=== PATIENT | female | born 1965 | race Caucasian/White ===

== ENCOUNTER 2024-08-19 12:30 | Emergency (ER) | payer OTHER, SELFPAY ==
--- OUTSIDE RECORDS SUMMARY | 2024-08-19 12:32 | XMS_ITS | Clinical Summary ---
Author Organization [facility] [facility] Address [address] [place] [address] Care Team Providers Care Ceiling Insulation Blower Name Role Phone Burrell, Augustina Uriarte COLLAR TAILOR Primary Care Provider [phone] Allergies Active Allergy Reactions Criticality Noted Date Comments Cortisone Angioedema High 07/25/2023 Pt reports has cortisone shots which made her face swell up Lidocaine Flushing (skin) Low 08/10/2023 Penicillins Rash,Blisters High 08/04/2021 Venom-Honey Bee Swelling High 10/11/2023 Large local reactions Medications cyclobenzaprine (FLEXERIL) 10 mg tablet Take 1 tablet (10 mg total) by mouth 3 (three) times a day as needed Active traZODone (DESYREL) 50 mg tablet 0.5 tablets (25 mg total) 07/19/2021 Active gabapentin (NEURONTIN) 400 mg capsule Take 1 capsule (400 mg total) by mouth 3 (three) times a day 07/16/2021 Active clindamycin (CLINDAGEL) 1 % gel Apply to affected areas of vulva BID x 10 days. 30 g 1 03/17/2022 Active UNABLE TO FIND Felixypan hs Activ e tacrolimus (PROTOPIC) 0.1 % ointment Apply to AA Nasal Folds BID 30 g 11 08/10/[address] (VOLTAREN) 75 mg EC tablet Take 1 tablet (75 mg total) by mouth daily 08/10/2023 Active atorvastatin (LIPITOR) 10 mg tablet Take 1 tablet (10 mg total) by mouth daily 09/11/2023 Active cyanocobalamin (Vitamin B-12) 1,000 mcg/mL injection 10/08/2023 Active escitalopram (LEXAPRO) 10 mg tablet TAKE 1 TABLET BY MOUTH DAILY WITH THE 5 MG TABLET (TOTAL DAILY DOSE OF 15 MG) 09/19/[address] (CYMBALTA) 30 mg capsule daily 03/18/2024 Active valACYclovir (VALTREX) 1 gram tablet Take 1 tablet (1,000 mg total) by mouth daily 30 tablet 11 04/17/2024 04/12/19 Active clobetasoL (TEMOVATE) 0.05 % ointment Place small pea sized amount nightly to vulva. 45 g 2 04/17/2024 Active Active Problems Problem Noted Date Diagnosed Date Dysphagia 02/23/2024 Mood disorder 02/23/2024 Hematochezia 10/28/2022 HSV infection 04/28/2022 Abnormal MRI, thoracic spine 04/07/2022 Sciatica 07/02/2020 Lichen sclerosus of female genitalia 07/25/2019 Atopic dermatitis 07/25/2019 Lichen sclerosus 07/25/2019 Multiple joint pain 07/25/2019 Encounters Date Type Department Care Team Description 08/14/2024 11:30 AM CDT Office Visit [facility] Dermatology [address] [place] [address] [address] [place] [address] Kalani Ignacio MD Actinic keratosis (Primary Dx); Diffuse photodamage of skin; Multiple benign nevi; Purpura; Solar lentigo; Nguyen angioma; Seborrheic keratosis 06/25/2024 Telephone [facility] Gastroenterology [address] [facility] [address]th [place] [address] [place] [address] April Paez LPN from Last 3 Months Immunizations Immunization Administration Dates Next Due Pfizer SARS-CoV-2 Monovalent Vaccination (12+ Yrs) PURPLE 03/15/2021 Tdap 01/25/2017 Surgical History Surgery Date Site/Laterality Comments TOOTH EXTRACTION TUBAL LIGATION DILATION AND CURETTAGE OF UTERUS COLONOSCOPY Medical History Medical History Date Comments Depression Lichen sclerosus Family History Medical History Relation Name Comments Cancer Mother Diabetes Other Uterine cancer Other Breast cancer Sister Relation Name Status Comments Mother Other Sister Social History Tobacco Use Types Packs/Day Years Used Date Smoking Tobacco: Former Cigarettes Smokeless Tobacco: Current Tobacco Cessation:Ready to Q uit: Not Asked; Counseling Given: Not Answered AUDIT-C Answer Date Recorded Frequency of Alcohol Consumption Not on file 03/22/2024 Q2: How many drinks containi ng alcohol do you have on a typical day when you are drinking? Patient does not drink Frequency of Binge Drinking Not on file 03/04 Personal Safety Answer Date Recorded Have you ever been in or are you currently in a harmful physical or emotional relationship or is someone making you feel afraid or unsafe? Denies 12/19/2022 Comments No Sex and Gender Information Value Date Recorded Sex Assigned at Not on file Legal Sex Female 6:26 PM PORTER HEAD Gender Identity Female 06/22/2023 2:37 PM CDT Sexual Orientation Straight 06/22/2023 2: 37 PM CDT Obstetrics History Para Term AB IAB SAB Ectopic Multiple Livin g Live Births 1 1 1 1 1 Date Outcome GA Total Labor Labor/2nd/3rd Weight Sex Type Anes PTL Irish A1 A5 Name Clin 1990 Term M Vag-S pont Living Complications:Other (Comment ) Last Filed Vital Signs Vital Sign Reading Time Taken Comments Blood Pressure 120/80 04/17/2024 1:20 PM PORTER HEAD Pulse 76 03/22/2024 8:43 AM PORTER HEAD Temperature 36.8 C (98.2 F) 03/22/2024 8:43 AM PORTER HEAD Respiratory Rate 13 12/19/2022 11:45 AM CDT Oxygen Saturation 100% 03/22/2024 8:43 AM PORTER [place] Inhaled Oxygen Concentration - - Weight 61.8 kg (136 lb 3.2 oz) 04/17/2024 1:20 P M PORTER HEAD Height 162.6 cm (5' 4 ) 04/17/2024 1:20 PM PORTER HEAD Body Mass Index 23.38 04/17/2024 1:20 PM PORTER HEAD Plan of Treatment Health Maintenance Due Date Last Done Comments Depression Screening 1965 Hepatitis B Screening 12/09/1981 Covid-19 Vaccine (2023- 5 season) 2023 03/15/2021, 07/30/2020 Cervical Cancer Screening 04/17/20252024, 04/17/2024, 02/16/2022 Regular Well Visit/Exam 18-64 04/17/2025, 02/16/2022 Breast Cancer Screening-Mammogram 04/29/2025 04/29/2024 DTaP/Tdap/Td Vaccine (2 - Td or Tdap) 01/25/2027 01/25/2017 Colon Cancer Screening-Colonoscopy 12/19/2032 12/19/2022 Zoster Vaccine Completed 11/16/2022, 04/28/2022 Influenza Vaccine Completed 01/29/2024, 01/31/2023, 01/16/2022 Hepatitis C Screening Completed 03/04/2024 , 03/04/2024 Pneumococcal vaccine <65 Aged Out No longer eligible based on patient's age to complete this topic Procedures Procedure Name Priority Date/Time Associated Diagnosis Comments SCREENING MAMMOGRAM BILATERAL W JOSE L Schedule Routine, Read Routine (OP Routine) 04/29/2024 1:27 PM PORTER HEAD Encounter for screening mammogram for malignant neoplasm of breast HIGH RISK HPV DNA DETECTION WITH GENOTYPING Routine 04/17/2024 2:05 PM PORTER HEAD Well woman exam HEPATITIS C ANTIBODY Routine 03/04/2024 2:27 PM PORTER HEAD COLONOSCOPY 12/19/2022 10:15 AM CDT from Last 3 Months or Most Recently Relevant to Health Maintenance Results * Screening Mammogram Bilateral W Jose L (04/29/2024 1:27 PM PORTER HEAD) Anatomical Region Laterality Modality Breast Bilateral Mammography 05/02/2024 8:20 AM PORTER HEAD Impressions 05/02/2024 8:20 AM PORTER [place] There is no mammographic evidence to suggest malignancy. The patient may continue screening mammography as per ACR guidelines. FINAL ASSESSMENT: BI-RADS Category 1: Negative. Electronically signed by: Carolyn Templeton 05/02/2024 8:20 AM PORTER [place] EXAMINATION: BILATERAL SCREENING MAMMOGRAM WITH TOMOGRAPHY HISTORY: Screening. COMPARISON(S): None. TECHNIQUE: Full-field 2D images and digital tomosynthesis images were obtained. CAD was utilized. BREAST PARENCHYMAL COMPOSITION: The breasts are heterogenously dense, which may obscure small masses. FINDINGS: There are no suspicious masses. No suspicious calcifications are seen. There is no unexplained architectural distortion. There is no skin thickening seen. There are no mammographically abnormal lymph nodes seen in the axillae or elsewhere. Augustina Burrell NP IMG MAMMO PROCEDURES Final R esult * High Risk HPV DNA Detection with Genotyping (Molecular component) (04/17/2024 2:05 PM PORTER HEAD) HPV HR 16 Not Detected Not Detected [facility] Comment:Testing performed by : [facility], [address] [place]., [address] HPV HR 18 Not Detected Not Detected [facility] Comment:Testing performed by : [facility], [address] [place]., [address] HPV HR Non 16/18 Not Detected Not Detected [facility] Comment: Interpretive Data Nucleic acid amplification for detection of high-risk Human Papilloma virus (HPV) is performed by the Sy Kwame 6800 HPV test. This assay specifically detects HPV-16 and HPV-18 genotypes. The following HPV genotypes are detected as high-risk HPV: HPV-31, 33, 35, ,39, 45, 51, 52, 56, 58, 59, 66, and 68. This assay has been approved by the [place] Food and Drug Administration for detection of HPV in cervical specimens collected by a physician using an endocervical brush/spatula or cervical broom and placed in the ThinPrep Pap Test PreservCyt collection containers. The performance characteristics of this test have been verified by the [facility] Molecular Infectious Disease laboratory. Correlate with separately reported cytology results, as applicable. Interpretive data last revised 22 Testing performed by: [facility], [address] [place]., [address] Endocervical 04/17/2024 2:05 PM PORTER HEAD 04/18/2024 2:10 PM PORTER HEAD Narrative [facility] - 04/19/2024 3:58 AM PORTER [place] Clinical history and diagnosis->screening Testing type->Screening Last menstrual period (date if known)->postmenopausal Mandy Sahni MD LAB BODY FLUIDS AND STOOL S ORDERABLES Final Result Performing Organization Address [facility] Co de Phone Number [facility] [address] [facility] [place] [address] [facility] * Hepatitis C antibody Blood (03/04/2024 2:27 PM PORTER HEAD) Hep C Ab Nonreactive Nonreactive Comment: Interpretive Data Nonreactive: Antibodies to HCV not detected. Does NOT exclude the possibility of recent exposure to HCV. Equivocal: Equivocal for HCV antibodies. Supplemental molecular testing will be automatically performed to determine infection status in accordance with current CDC screening recommendations. Reactive: Positive for HCV antibodies. This may represent current or past HCV infection. Supplemental molecular testing will be automatically performed to determine current infection status in accordance with current CDC screening recommendations. Interpretive data was last revised on 2019. Testing performed by: [facility], [address] [place] [address]., [address] Blood 03/04/2024 2:27 PM PORTER HEAD 03/05/2024 9:49 AM PORTER HEAD Monster Roe MD LAB MICROBIOLOGY - GENERAL ORDER LILI Final Result Performing Organization Address [facility] Co de Phone Number [facility] [address] [facility] [place] [address] * COLONOSCOPY (12/19/2022 10:15 AM CDT) Anatomical Region Laterality Modality Other Narrative Procedure Note Brian Giang MD - 12/19/2022 10:15 AM CDT GI ENDOSCOPY [facility] Patient Name: Sarah Orozco Procedure Date: 12/19/2022 10:15 AM Date of : 1965 Admit Type: Outpatient Age: 57 Gender: Female Attending MD: Brian Giang M.D. Room: [facility] ENDOSCOPY ROOM 8 Note Status: Finalized Procedure: Colonoscopy Indications: Hematochezia, Change in stool caliber Referring MD: Augustina Burrell NP Providers: Brian Giang M.D. Medicines: Monitored Anesthesia Care Complications: No immediate complications. Estimated Blood Loss: Estimated blood loss was minimal. Procedure: Pre-Anesthesia Assessment: - [place] Protocol: - Pre-procedure Verification: Prior to theprocedure, the patient's identity was verified by full name,date of and medical record number. The patient's identity was verified on all pertinent medical records, including History and Physical. Also priorto the procedure, a History and Physical wasperformed, and patient medications, allergies andsensitivities were reviewed. The patient's tolerance of previous anesthesia was reviewed. The patient is competent.The risks and benefits of the procedure and thesedation options and risks were discussed with the patient.All questions were answered and informed consent was obtained. - Time-Out: Prior to the start of the procedure,the patient's identification, proposed procedure,accurate signed consent, correctly labeled images andrecords, and need for prophylactic antibiotics were verifiedby the physician, the nurse and the filling and stapling machine operator in the endoscopy suite. - Immediately prior to administration ofmedications, the patient was re-assessed for adequacy to receive sedatives. - The risks and benefits of the procedure and the sedation options and risks were discussed with the patient. All questions were answered and informed consent was obtained. The benefits, risks and alternatives of theprocedure and sedation were discussed and informed consentwas obtained. All questions were answered. Please referto the signed informed consent document in the medical record. The scope was passed under direct vision.The CF [id number] endoscope was introduced through the anus and advanced to the cecum, identified by appendiceal orifice and ileocecal valve. The colonoscopy was performed with ease. The patient tolerated the procedure well. The quality of thebowel preparation was evaluated using the BBPS (BostonBowel Preparation Scale) with scores of: Right Colon = 3, Transverse Colon = 3 and Left Colon = 3 (entiremucosa seen well with no residual staining, smallfragments of stool or opaque liquid). The total BBPS score equals 9. The ileocecal valve, appendiceal orifice, and rectum were photographed. The bowel preparation used was GoLYTELY via split dose instruction. The quality of the bowel preparation was excellent. Findings: The perianal exam findings include significant erythmea of theexternal rectum and perineal region. Three sessile polyps were found in the cecum. The polyps were 2 to 3mm in size. These polyps were removed with a cold biopsy forceps.Resection and retrieval were complete. A few small-mouthed diverticula were found in the sigmoid colon. Non-bleeding internal hemorrhoids were found during retroflexion. The hemorrhoids were moderate. Because of her history of lichen sclerosus and possible slowed GI motility, I opted to take random colon biopsies of the right colon (cecum, ascending colon, which all appeared normal), left colon (descending colon, particularly an area with some mild white spotsbut not shad), and sigmo-rectum (the sigmoid was difficult to traversebut I believe this was more due to diverticulosis). Biopsies were takenwith a cold forceps for histology. Estimated blood loss was minimal. No lesions found to explain hematochezia other than some internal hemorrhoids. Impression: - Significant erythmea of the external rectum and perineal region. found on perianal exam. - Three 2 to 3 mm polyps in the cecum, removed witha cold biopsy forceps. Resected and retrieved. - Diverticulosis in the sigmoid colon. - Non-bleeding internal hemorrhoids. Recommendation: - Discharge patient to home. - Await pathology results, ensure no GI involvementof lichen sclerosus. - Regarding her repeat colonoscopy for polyp surveillance, I had a low suspicion that the polypsI removed today were adenomas, await pathology;probably reasonable to recommend a repeat colonoscopy in7-10 years. - Follow-up with Dr. Rodriguez regarding next steps, after pathology results. Electronically signed by Brian Giang MD Brian Giang M.D. 12/19/2022 11:15:23 AM . Number of Addenda: 0 Note Initiated On: 12/19/2022 10:15 AM Recognized by the [employer] for promoting quality in endoscopy Brian Giang MD ENDOSCOPY PROCEDURES Final Res ult from Last 3 Months or Most Recently Relevant to Health Maintenance Insurance [facility] AETNA [facility] Member Subscriber Plan / Payer (Ef fective 2020-Present) Name:Sarah Orozco Relation to Subscriber:Self Name:Emma Orozcomaurisio Elias Payer ID:[id number] (NAIC) Type:MEDICAID RISK OTHER Address: [facility] [id number] [place] [id number] Advance Directives For more information, please contact: [phone] * Full Code (Latest Code Status on File) Date Activated Date Inactivated Comments 12/19/2022 9:50 AM 12/19/2022 4:31 PM Care Teams Ceiling Insulation Blower Relationship Specialty Start Date End Date Augustina Burrell NP [address] [place] [address] PCP - General 07/02/20
--- OUTSIDE RECORDS SUMMARY | 2024-08-19 12:32 | XMS_ITS | Referral Summary ---
Author Organization [facility] Address [address] [place] [address] Care Team Providers Care Dials Inspector Name Role Phone Ashanti, Augsutina Uriarte NP Primary Care Provider Encounters Date Type Department Care Team Description 08/14/2024 11:30 AM CDT Office Visit [facility] Dermatology [address] [facility] [address] [place] [address] Kalani Ignacio MD Actinic keratosis (Primary Dx); Diffuse photodamage of skin; Multiple benign nevi; Purpura; Solar lentigo; Nguyen angioma; Seborrheic keratosis 06/25/2024 Telephone [facility] Gastroenterology [facility] [address]th [place] [address] [place] [address] April Paez LPN from Last 3 Months Allergies Active Allergy Reactions Criticality Noted Date [...] g 1 03/17/2022 Active UNABLE TO FIND Zypan hs Activ e tacrolimus (PROTOPIC) 0.1 % [...] Lichen sclerosus 07/25/2019 Multiple joint pain 07/25/2019 Immunizations Immunization Administration Dates Next Due Pfizer SARS-CoV-2 Monovalent Vaccination (12+ Yrs) PURPLE 03/15/2021 Tdap 01/25/2017 Social History Tobacco Use Types Packs/Day Years [...] on file Legal Sex Female 6:26 PM BILLET HEATER OPERATOR Gender Identity Female 06/22/2023 2:37 PM CDT Sexual Orientation Straight 06/22/2023 2: 37 PM CDT Last Filed Vital Signs Vital Sign Reading Time Taken Comments Blood Pressure 120/80 04/17/2024 1:20 PM BILLET HEATER OPERATOR Pulse 76 03/22/2024 8:43 AM BILLET HEATER OPERATOR Temperature 36.8 C (98.2 F) 03/22/2024 8:43 AM BILLET HEATER OPERATOR Respiratory Rate 13 12/19/2022 11:45 AM CDT Oxygen Saturation 100% 03/22/2024 8:43 AM BILLET HEATER OPERATOR Inhaled Oxygen Concentration - - Weight 61.8 kg (136 lb 3.2 oz) 04/17/2024 1:20 P M BILLET HEATER OPERATOR Height 162.6 cm (5' 4 ) 04/17/2024 1:20 PM BILLET HEATER OPERATOR Body Mass Index 23.38 04/17/2024 1:20 PM BILLET HEATER OPERATOR Plan of Treatment Not on file Procedures Procedure Name Priority Date/Time Associated Diagnosis Comments SCREENING MAMMOGRAM BILATERAL W JOSE L Schedule Routine, Read Routine (OP Routine) 04/29/2024 1:27 PM BILLET HEATER OPERATOR Encounter for screening mammogram for malignant neoplasm of breast HIGH RISK HPV DNA DETECTION WITH GENOTYPING Routine 04/17/2024 2:05 PM BILLET HEATER OPERATOR Well woman exam HEPATITIS C ANTIBODY Routine 03/04/2024 2:27 PM BILLET HEATER OPERATOR COLONOSCOPY 12/19/2022 10:15 AM CDT from Last 3 Months or Most Recently Relevant to Health Maintenance Results * Screening Mammogram Bilateral W Jose L (04/29/2024 1:27 PM BILLET HEATER OPERATOR) Anatomical Region Laterality Modality Breast Bilateral Mammography 05/02/2024 8:20 AM BILLET HEATER OPERATOR Impressions 05/02/2024 8:20 AM BILLET HEATER OPERATOR There is no mammographic evidence to suggest malignancy. The patient may continue screening mammography as per ACR guidelines. FINAL ASSESSMENT: BI-RADS Category 1: Negative. Electronically signed by: Moni Morrell M.D. Narrative 05/02/2024 8:20 AM BILLET HEATER OPERATOR EXAMINATION: BILATERAL SCREENING MAMMOGRAM WITH TOMOGRAPHY HISTORY: [...] with Genotyping (Molecular component) (04/17/2024 2:05 PM BILLET HEATER OPERATOR) HPV HR 16 Not Detected Not Detected [facility] Comment:Testing performed by : , [address] [place]., [address] HPV HR 18 Not Detected Not Detected [facility] Comment:Testing performed by : , [address] [place]., [address] HPV HR Non 16/18 Not Detected Not [...] this test have been verified by the [facility] Molecular Infectious Disease laboratory. Correlate with separately reported cytology results, as applicable. Interpretive data last revised 22 Testing performed by: , [address] [place] [address]., [address] Endocervical 04/17/2024 2:05 PM BILLET HEATER OPERATOR 04/18/2024 2:10 PM BILLET HEATER OPERATOR Narrative [facility] - 04/19/2024 3:58 AM BILLET HEATER OPERATOR Clinical history and diagnosis->screening Testing type->Screening Last menstrual period (date if known)->postmenopausal Mandy Sahni MD LAB BODY FLUIDS AND STOOL S ORDERABLES Final Result [facility] [address] [facility] Department [address] [place] [address] [facility] * Hepatitis C antibody Blood (03/04/2024 2:27 PM BILLET HEATER OPERATOR) Hep C Ab Nonreactive Nonreactive Comment: Interpretive [...] last revised on 2019. Testing performed by: [facility], [address] [place] [address]., [address] Blood 03/04/2024 2:27 PM BILLET HEATER OPERATOR 03/05/2024 9:49 AM BILLET HEATER OPERATOR Monster Roe MD LAB MICROBIOLOGY - GENERAL ORDER LILI Final Result [facility]) [address] [facility] [place] [address] * COLONOSCOPY (12/19/2022 10:15 AM CDT) Anatomical Region Laterality Modality Other Narrative Procedure Note Brian Giang MD - 12/19/2022 10:15 AM CDT GI ENDOSCOPY [facility] Patient Name: Sarah Orozco Procedure Date: 12/19/2022 10:15 AM Date of : 1965 Admit Type: Outpatient Age: 57 Gender: Female Attending MD: Brian Giang M.D. Room: [facility] ENDOSCOPY ROOM 8 Note Status: Finalized Procedure: Colonoscopy Indications: Hematochezia, Change in stool caliber Referring MD: Augustina Burrell NP Providers: Brian Giang M.D. Medicines: Monitored Anesthesia Care Complications: No immediate complications. Estimated Blood Loss: Estimated blood loss was minimal. Procedure: Pre-Anesthesia Assessment: - [place] Protocol: - Pre-procedure Verification: Prior to theprocedure, [...] verifiedby the physician, the nurse and the machine rug cleaner in the endoscopy suite. - Immediately prior [...] scope was passed under direct vision.The CF [id number] endoscope was introduced through the anus [...] On: 12/19/2022 10:15 AM Recognized by the [place] [employer] for promoting quality in endoscopy Brian Giang MD ENDOSCOPY PROCEDURES Final Res ult from Last 3 Months or Most Recently Relevant to Health Maintenance Insurance AETNA [facility] AETNA [facility] AETNA [facility] Advance Directives For more information, please contact: [phone] * Full Code (Latest Code Status on File) Date Activated Date Inactivated Comments 12/19/2022 9:50 AM 12/19/2022 4:31 PM Care Teams Dials Inspector Relationship Specialty Start Date End Date Augustina Burrell NP [address] [place] [address] PCP - General 07/02/20
--- OUTSIDE RECORDS SUMMARY | 2024-08-19 12:32 | XMS_ITS | Clinical Summary ---
Author Organization [facility] Address [address] [place] [address] Care Team Providers Care Fiberglass Insulation Installer Name Role Phone Lilliana Boss APRN-TRUCK DRIVER TEAMSTER Primary Care Provider Source Comments [facility],non-owned Affiliates and Associated Physician Practices is amultiple site organization consisting of ambulatory clinics and hospital sitesin [place], [place], [place] and [place]. This disclosure is being madepursuant to the Care Everywhere program and may not contain all information available regarding this patient. Last updated 17.[facility] Allergies No known active allergies Medications * Be aware that medications may not be up to date on this document. Alwaysverify current medications with the patient. clobetasol (TEMOVATE) 0.05 % ointment Use only for flares 1-2x daily for no more than one week 45 g 08/26/2020 Active Social History Tobacco Use Types Packs/Day Years Used Date Smoking Tobacco: Never Assessed Comments Unknown Sex and Gender Information Value Date Recorded Sex Assigned at Not on file Legal Sex Female 9:24 AM CDT Gender Identity Not on file Sexual Orientation Not on file Last Filed Vital Signs Vital Sign Reading Time Taken Comments Blood Pressure 131/69 08/26/2020 10:25 AM CDT Pulse 80 08/26/2020 10:25 AM CDT Temperature - - Respiratory Rate - - Oxygen Saturation - - Inhaled Oxygen Concentration - - Weight 55.4 kg (122 lb 3.2 oz) 08/26/2020 10:25 AM CDT Height - - Body Mass Index - - Plan of Treatment Health Maintenance Due Date Last Done Comments COLOGUARD (AGES 45-75) - COL ON CA SCREENING 1963 COLON MONITORING 1963 COLONOSCOPY - COLON CA SCREENING 1963 CT COLONOGRAPHY - COLON CA SCREENING 1963 Colorectal Cancer Screening 1963 FIT - COLON CA SCREENING 1963 FLEX SIG - COLON CA SCREENING 1963 LIPID TESTING 1963 MAMMOGRAM 1963 PAP SMEAR 1963 HIV SCREENING 12/09/1978 HEPATITIS C SCREENING 12/05/1981 DTAP/TDAP/TD VACCINES (1 - Tdap) 12/09/1982 PNEUMOCOCCAL VACCINE 50+ (1 of 1 - PCV) 12/09/2013 ZOSTER VACCINE (1 of 2) 12/09/2013 COVID-19 VACCINE ( - 2023-2 5 season) 2023 DEPRESSION SCREENING 04/03/2024 INFLUENZA VACCINE (Season Ended) 2024 Respiratory Syncytial Virus (RSV) Vaccine Pt: or over 60 yrs (1 - 1-dose 75+ series) 12/09/2038 HEPATITIS B VACCINE Aged Out No longe r eligible based on patient's age to complete this topic HIB VACCINE Aged Out No longer eligi ble based on patient's age to complete this topic HPV VACCINE Aged Out No longer eligi ble based on patient's age to complete this topic MENINGOCOCCAL (Group B) VACC INE SHARED DECISION-MAKING Aged Out No longer eligibl e based on patient's age to complete this topic MENINGOCOCCAL GROUPS A/C/Y/W VACCINE Aged Out No longer eligible b ased on patient's age to complete this topic Insurance MEDICAID [id number] Care Teams Fiberglass Insulation Installer Relationship Specialty Start Date End Date Lilliana Boss, CHILDREN'S AIDE-TRUCK DRIVER TEAMSTER [address] [place] [id number] PCP - General 06/11/19
--- OUTSIDE RECORDS SUMMARY | 2024-08-19 12:33 | XMS_ITS | Clinical Summary ---
Author Organization [facility] Address [address] [place] [address] Care Team Providers Care Wrapper Off Name Role Phone Ashanti Augustina VALERIO CNP Primary Care Provider [phone] Allergies Active Allergy Reactions Criticality Noted Date Comments Bee Venom Swelling High 10/11/2023 Large local reactions Cortisone Swelling High 07/25/2023 Pt reports has cortisone shots which made her face swell up Lidocaine Other (see Comments) Low 08/10/2023 Penicillins Other (see Comments),Rash High 08/04/2021 Medications valACYclovir (VALTREX) 1 GM Tablet Take 1,000 mg by mouth daily. 04/17/2024 04/12/19 26 Active clobetasol (TEMOVATE) 0.05 % Ointment Apply nightly. 08/26/2020 Active atorvastatin (LIPITOR) 10 MG Tablet Take 10 mg by mouth daily. Active cyanocobalamin (VITAMIN B-12) 1000 MCG/ML Solution 1,000 mcg. 10/08/2023 Active escitalopram (LEXAPRO) 10 MG Tablet Take 10 mg by mouth daily. Active diclofenac (VOLTAREN) 75 MG Tablet Delayed Response Take 75 mg by mouth daily. Active tacrolimus (PROTOPIC) 0.1 % Ointment Apply to AA Nasal Folds BID 08/10/2023 Active clindamycin 1 % Gel Apply to affected areas of vulva BID x 10 days. 03/17/2022 Active cyclobenzaprine (FLEXERIL) 10 MG Tablet Take 10 mg by mouth. Active gabapentin (NEURONTIN) 400 MG Capsule Take 400 mg by mouth 3 times daily. Active traZODone (DESYREL) 50 MG Tablet 25 mg. 07/19/2021 Active DULoxetine (CYMBALTA) [address] Mar 06/08/2024 Active Active Problems Problem Noted Date Diagnosed Date Joint pain 06/25/2024 Muscle pain 06/25/2024 Fibromyalgia 06/25/2024 MGUS (monoclonal gammopathy of unknown significa nce) 05/13/2024 Encounters Date Type Department Care Team Description 06/10/2024 1:00 PM CDT Office Visit [facility] [address] [phone] Pablo Braga MD MGUS (monoclonal gammopathy of unknown significance) (Primary Dx) 06/10/2024 Travel from Last 3 Months Immunizations Immunization Administration Dates Next Due Influenza, Seasonal, Injectable, Undefined 01/28 Family History Relation Name Status Comments Brother Alive Child Alive Father Alive Mother Alive Sister Alive Social History Tobacco Use Types Packs/Day Years Used Date Smoking Tobacco: Former Cigarettes Smokeless Tobacco: Never Tobacco Cessation:Counseling Given: Not Answered Alcohol Use Standard Drinks/Week Comments Yes 0 (1 standard drink = 0.6 oz pur e alcohol) Comments Unknown Sex and Gender Information Value Date Recorded Sex Assigned at Not on file Legal Sex Female 11:57 PM CDT Gender Identity Not on file Sexual Orientation Not on file Last Filed Vital Signs Vital Sign Reading Time Taken Comments Blood Pressure 118/70 06/10/2024 1:16 PM CDT Pulse 87 06/10/2024 1:16 PM CDT Temperature 36.9 C (98.4 F) 06/10/2024 1:16 PM CDT Respiratory Rate 18 06/10/2024 1:16 PM CDT Oxygen Saturation 98% 06/10/2024 1:16 PM CDT Inhaled Oxygen Concentration - - Weight 63.4 kg (139 lb 12.8 oz) 06/10/2024 1:16 PM CDT Height 161.3 cm (5' 3.5 ) 06/10/2024 1:16 PM CDT Body Mass Index 24.38 06/10/2024 1:16 PM CDT Plan of Treatment Upcoming Encounters Date Type Department Care Team (Late st Contact Info) Description 09/16/2024 1:30 PM CDT Lab [facility] [address] [phone] Pablo Braga MD [address] [place], [place] [id number] Lab, [facility] 09/16/2024 1:45 PM CDT Office Visit [facility] [address] [place] [phone] Pablo Braga MD [address] [place], [place] [id number] Health Maintenance Due Date Last Done Comments Hepatitis C Virus (HCV) Screening 1965 Pap Smear 12/09/1984 Cervical Cancer Screening (CCS) 12/09/1993 HPV/Cotest 12/09/1993 Cologuard 12/09/2013 Immunochemical Fecal Occult Blood 12/09/2013 Pneumococcal Immunization (50+ years) (1 of 1 - PCV) 12/09/2013 Mammogram 04/29/2025 04/29/2024 Colonoscopy 12/19/2032 12/19/2022 Colorectal Cancer Screening 12/19/2032 Respiratory Syncytial Virus (RSV) Immunization (Adult) (1 - 1-dose 75+ series) 12/09/2038 12/19/2022 DTaP/Tdap/Td Immunization Discontinued 01/25/2017 TdaP Immunization Completed 01/25/2017 Zoster Immunization Completed 11/16/2022, Influenza Immunization Completed 4, 01/31/2023, 01/16/2022 SARS-COV-2 Immunization Completed 01/29/20 24, 01/16/2022, 03/15/2021, Additional history exists Hepatitis B Immunization Aged Out No longer eligible based on patient's age to complete this topic Meningococcal Immunization (ACWY) Aged Out No longer eligible based on patient's age to complete this topic Rotavirus Immunization Aged Out No lo nger eligible based on patient's age to complete this topic Insurance MEDICAID [employer]ICAID [employer] Care Teams Wrapper Off Relationship Specialty Start Date End Date Augustina Burrell APRN, CNP [address] [place] [address] PCP - General Family Medicine 08/26/21
--- OUTSIDE RECORDS SUMMARY | 2024-08-19 12:33 | XMS_ITS | Data Portability ---
Author Organization [facility] TIFFANYCarlito [facility] Address [address] [place] [address] Care Team Providers Care Heavy Equipment Service Manager Name Role Phone AUGUSTINA GARRETT Primary Care Provider Unavailabl e Assessment No assessment recorded. Plan of Treatment Reminders Order Date Submit Date Provider Last Modified By Organization Details Last Modified Time Details Appointments ANY 15 2024 01:15P M Augustina Garrett APN, DEBT COUNSELOR-C Not available Not available Not available Lab TSH, ultra-s ensitiv e, serum 2024 025 [facility], [address] [facility] , [place], [address], 07/29/2024 14:58:05 CMP, serum or plasma 2024 025 [facility], [address], [place], [address], 04/30/2024 16:20:52 lipid panel, serum 2024 025 [facility], [address] [facility] [place], [address], 07/29/2024 15:02:07 CBC 2024 025 [facility], [address], [place], [address], 04/30/2024 16:20:52 respira tory allerge n panel - [place] 2023 024 SHANTEL [facility], [address] [facility], [facility], [place], [address], 08/03/2023 10:37:02 food allerge n panel, serum 2023 024 SHANTEL [facility], [address] [facility], [facility], [place], [address], 08/03/2023 10:37:03 ESR (erythr ocyte sedimen tation rate), blood 2023 024 [facility], [address] [facility], [facility], [place], [address], 08/03/2023 10:37:05 C reactiv e protein , QN, serum or plasma 2023 024 [facility], [address] [facility], [facility], [place], [address], 08/03/2023 10:37:06 rf (rheuma toid factor) + anti-cc p abs, serum 2023 024 [facility], [address] [place] [address], [facility], [place], [address], 08/03/2023 10:37:00 LASHONDA (antinu clear antibod ies) screen, serum 2023 024 [facility], [address] [place] [address], [facility], [place], [address], 08/03/2023 10:37:01 lipid panel, serum 2023 024 [facility], [address] [facility], [facility], [place], [address], 07/28/2023 03:08:25 CMP, serum or plasma 2023 024 [facility], [address] [facility], [facility], [place], [address], 07/28/2023 03:08:25 HbA1c (hemogl obin A1c), blood 2023 024 [facility], [address] [facility], [facility], [place], [address], 08/03/2023 10:37:05 CBC 2023 024 [facility], [address] [facility], [facility], [place], [address], 07/28/2023 03:08:26 vitamin B12 + folate, serum or blood 2023 024 SHANTEL [facility], [address] [facility], [facility], [place], [address], 08/03/2023 10:37:04 vitamin D, 25-hydr oxy, total, serum 2023 024 [facility], [address] [place] [address], [facility], [place], [address], 08/03/2023 10:37:07 TSH, ultra-s ensitiv e, serum 2023 024 SHANTEL [facility], [address] [facility], [facility], [place], [address], 08/03/2023 10:37:02 urinaly sis, dipstic k 2023 024 In-Office Order, Internal Use Only DO Not Attach Compendium DO Not Attach Compendium, Do Not Delete/merge, [id number] 05/16/2023 12:30:26 culture , urine 2023 024 [facility], [address] [facility], [facility], [place], [address], 05/19/2023 14:12:46 Referral None recorde d. Procedures None recorde d. Surgeries None recorde d. Imaging MAMMO, screeni ng, digital , bilater al 2023 024 SHANTEL [facility] ([facility]), [address] [facility] [place], [address], 05/02/2024 09:24:49 Medication Orders duloxet ine 60 mg capsule ,delaye d release 2024 025 [facility], [address] [place] [address], [address], 07/29/2024 15:02:02 atorvas tatin 10 mg tablet 2024 025 [facility], [address] [place] [address], [address], 07/29/2024 15:01:58 Cymbalt a 30 mg capsule ,delaye d release 2024 025 [facility], [address] [place] [address], [address], 07/29/2024 14:37:29 diclofe nac sodium 75 mg tablet, delayed release 2024 025 [facility], [address] [place] [address], [address], 04/30/2024 16:20:58 atorvas tatin 10 mg tablet 2024 025 [facility], [address] [place] [address], [address], 04/30/2024 16:20:53 gabapen tin 400 mg capsule 2024 025 [facility], [address] [place] [address], [address], 07/29/2024 14:37:37 Macrobi d 100 mg capsule 2023 024 [place] [address], [address] [place] [address], [address], 07/27/2023 14:37:29 Patient TargetsNo targets recorded. Patient Instructions Encounter Date Encounter Id Patient Instructions Last Modified By Organization Details Last Modified Time 05/16/2023 [id number] painful urination (dysuria): care instructions Not available 05/16/2023 12:23:08 Take all antibiotics as prescribed. Do not use bubble baths. Wipe from front to back. Take 500 mg Vitamin C twice a day or try OTC cranberry pills or 100% cranberry juice. Increase fluids. Not available 05/16/2023 12:31:25 keep f/u as planned Not available 05/16/2023 12:31:33 07/27/2023 [id number] Quitting Tobacco: Care Instructions Not available 07/27/2023 14:58:16 high cholesterol: care instructions Not available 07/27/2023 14:58:16 learning about mood disorders Not available 07/27/2023 14:58:17 Cont on current medications. Not available 07/27/2023 14:58:13 dwp labs needed, plan pending results Not available 07/27/2023 14:53:26 01/29/2024 [id number] influenza (flu) vaccine: care instructions Not available 01/29/2024 14:54:19 high cholesterol: care instructions Not available 01/29/2024 14:54:19 learning about mood disorders Not available 01/29/2024 14:54:19 Cont on current medications. Not available 01/29/2024 14:41:14 follow up in 6 months Not available 01/29/2024 14:48:08 04/30/2024 [id number] neuropathic pain: care instructions Not available 04/30/2024 16:20:47 handicap placard* jschulterma Not available 05/01/2024 08:36:13 Continue all medications as prescribed. Not available 04/30/2024 16:21:40 keep f/u as planned Not available 04/30/2024 16:21:44 07/29/2024 [id number] neuropathic pain: care instructions Not available 07/29/2024 15:01:51 Continue all medications as prescribed. Not available 07/29/2024 14:42:45 follow up in 6 months Not available 07/29/2024 15:05:26 Reason for Referral None Reported. Results Created Date Observation Date Name Description Value Unit Range Abnormal Flag Note LastModifiedBy Organization Detail LastModifiedTime 05/16/19 24 05/19/2023 URINE CULTU RE,CO MPREH ENSIV E urine culture,comp rehensive Final report abnormal Not Available [facility] ([facility]) [address] [facility], [place], [address], 05/19/2023 14:12:45 05/16/19 24 05/19/2023 URINE CULTU RE,CO MPREH ENSIV E result 1 Escher ichia coli abnormal 50,00 0-100 ,000 colon y formi ng units per mL Cefaz robyn <=4 ug/mL Cefaz robyn with an EARNESTINE <=16 predi cts susce ptibi lity to the oral agent s cefac anna, cefdi joaquina, cefpo doxim e, cefpr ozil, cefur oxime , cepha lexin , and lorac arbef when used for thera py of uncom plica nicole urina ry tract infec tions due to E. coli, Klebs iella pneum oniae , and Prote us mirab ilis. Not Available [facility] ([facility]) [address] [facility], [place], [address], 05/19/2023 14:12:45 05/16/19 24 05/19/2023 URINE CULTU RE,CO MPREH ENSIV E antimicrobia l susceptibili ty Commen t S = Susce ptibl e; I = Inter media te; R = Resis tant P = Posit yolande; N = Negat yolande MICS are expre ssed in micro grams per mL Antib iotic RSLT# 1 RSLT# 2 RSLT# 3 RSLT# 4 Amoxi cilli n/Cla vulan ic Acid S Ampic illin S Cefep danay S Ceftr iaxon e S Cefur oxime S Cipro floxa tanna S Ertap enem S Genta micin S Imipe nem S Levof loxac in S Merop enem S Nitro furan toin S Piper acill in/Ta zobac baum S Tetra cycli ne S Tobra mycin S Trime thopr im/Rcok lfa S Not Available [facility] ([facility]) [address] [facility], [place], [address], 05/19/2023 14:12:45 05/16/19 24 05/16/2023 urina lysis , dipst ick Leukocytes Modera te Not Available In-Office Order Internal Use Only DO Not Attach Compendium DO Not Attach Compendium, Do Not Delete/merge, 05/16/2023 12:12:10 05/16/19 24 05/16/2023 urina lysis , dipst ick Nitrite negati ve Not Available In-Office Order Internal Use Only DO Not Attach Compendium DO Not Attach Compendium, Do Not Delete/merge, 05/16/2023 12:12:10 05/16/19 24 05/16/2023 urina lysis , dipst ick Urobilinogen .2 Not Available In-Of fice Order Internal Use Only DO Not Attach Compendium DO Not Attach Compendium, Do Not Delete/merge, 05/16/2023 12:12:10 05/16/19 24 05/16/2023 urina lysis , dipst ick Protein 30 Not Available In-Office Order Internal Use Only DO Not Attach Compendium DO Not Attach Compendium, Do Not Delete/merge, 05/16/2023 12:12:10 05/16/19 24 05/16/2023 urina lysis , dipst ick pH 6.5 Not Available In-Office Order Internal Use Only DO Not Attach Compendium DO Not Attach Compendium, Do Not Delete/merge, 05/16/2023 12:12:10 05/16/19 24 05/16/2023 urina lysis , dipst ick Blood Large Not Available In-Office Order Internal Use Only DO Not Attach Compendium DO Not Attach Compendium, Do Not Delete/merge, 05/16/2023 12:12:10 05/16/19 24 05/16/2023 urina lysis , dipst ick Specific [place] 1.015 Not Available In-Off ice Order Internal Use Only DO Not Attach Compendium DO Not Attach Compendium, Do Not Delete/merge, 05/16/2023 12:12:10 05/16/19 24 05/16/2023 urina lysis , dipst ick Ketone Negati ve Not Available In-Office Order Internal Use Only DO Not Attach Compendium DO Not Attach Compendium, Do Not Delete/merge, 05/16/2023 12:12:10 05/16/19 24 05/16/2023 urina lysis , dipst ick Bilirubin Negati ve Not Available In-Office Order Internal Use Only DO Not Attach Compendium DO Not Attach Compendium, Do Not Delete/merge, 05/16/2023 12:12:10 05/16/19 24 05/16/2023 urina lysis , dipst ick Glucose Negati ve Not Available In-Office Order Internal Use Only DO Not Attach Compendium DO Not Attach Compendium, Do Not Delete/merge, 05/16/2023 12:12:10 05/16/19 24 05/16/2023 urina lysis , dipst ick Appearance Slight ly Cloudy Not Available In-Office Order Internal Use Only DO Not Attach Compendium DO Not Attach Compendium, Do Not Delete/merge, 05/16/2023 12:12:10 05/16/19 24 05/16/2023 urina lysis , dipst ick Color Dark Yellow Not Available In-Office Order Internal Use Only DO Not Attach Compendium DO Not Attach Compendium, Do Not Delete/merge, 05/16/2023 12:12:10 07/27/19 24 07/27/2023 LIPID PANEL cholesterol, total 256 mg/dL 100-19 9 above high normal Not Available [facility] Department [address] [place], [address], 07/28/2023 03:08:25 07/27/19 24 07/27/2023 LIPID PANEL triglyceride s 76 mg/dL 0-149 Not Available [facility] Department [address] [place], [address], 07/28/2023 03:08:25 07/27/19 24 07/27/2023 LIPID PANEL HDL cholesterol 86 mg/dL 40-999 Not Available [facility] Department [address] [place], [address], 07/28/2023 03:08:25 07/27/19 24 07/27/2023 LIPID PANEL VLDL cholesterol nnamdi 15 mg/dL 5-40 Not Available [facility] Department [address] [place] [address], [address], 07/28/2023 03:08:25 07/27/19 24 07/27/2023 LIPID PANEL LDL chol calc (nih) 167 mg/dL 0-99 above high normal Not Available [facility] Department [address] [place] [address], [address], 07/28/2023 03:08:25 07/27/19 24 07/27/2023 COMP. METAB OLIC PANEL (14) glucose 90 mg/dL 70-99 Not Available [facility] Department [address] [place], [address], 07/28/2023 03:08:25 07/27/19 24 07/27/2023 COMP. METAB OLIC PANEL (14) BUN 10 mg/dL 6-24 Not Available [facility] Department [address] [place] [address], [address], 07/28/2023 03:08:25 07/27/19 24 07/27/2023 COMP. METAB OLIC PANEL (14) creatinine 0.55 mg/dL 0.76-1 .27 below low normal Not Available [facility] Department [address] [place] [address], [address], 07/28/2023 03:08:25 07/27/19 24 07/27/2023 COMP. METAB OLIC PANEL (14) eGFR 106 >=60 Units for eGFR value s are mL/mi n/1.7 3 The eGFR Calcu latio n has not been valid ated for patie nts under the age of 18. If test resul ts are displ ayed for a patie nt under the age of 18, disre yassine that value . Not Available [facility] Department [address] [place] [address], [address], 07/28/2023 03:08:25 07/27/19 24 07/27/2023 COMP. METAB OLIC PANEL (14) BUN/creatini ne ratio 18 9-23 Not Available [facility] Department [address] [place] [address], [address], 07/28/2023 03:08:25 07/27/19 24 07/27/2023 COMP. METAB OLIC PANEL (14) sodium 141 mmol/ L 134-14 4 Not Available [facility] Department [address] [place] [address], [address], 07/28/2023 03:08:25 07/27/19 24 07/27/2023 COMP. METAB OLIC PANEL (14) potassium 4.3 mmol/ L 3.5-5. 2 Not Available [facility] Department [address] [place] [address], [address], 07/28/2023 03:08:25 07/27/19 24 07/27/2023 COMP. METAB OLIC PANEL (14) chloride 103 mmol/ L 96-106 Not Available [facility] Department [address] [place] [address], [address], 07/28/2023 03:08:25 07/27/19 24 07/27/2023 COMP. METAB OLIC PANEL (14) carbon dioxide, total 26 mmol/ L 20-29 Not Available [facility] Department [address] [place] [address], [address], 07/28/2023 03:08:25 07/27/19 24 07/27/2023 COMP. METAB OLIC PANEL (14) calcium 10.2 mg/dL 8.7-10 .2 Not Available [facility] Department [address] [place] [address], [address], 07/28/2023 03:08:25 07/27/19 24 07/27/2023 COMP. METAB OLIC PANEL (14) protein, total 6.9 g/dL 6.0-8. 5 Not Available [facility] Department [address] [place], [address], 07/28/2023 03:08:25 07/27/19 24 07/27/2023 COMP. METAB OLIC PANEL (14) albumin 4.4 g/dL 3.8-4. 9 Not Available [facility] Department [address] [place] [address], [address], 07/28/2023 03:08:25 07/27/19 24 07/27/2023 COMP. METAB OLIC PANEL (14) globulin, total 2.5 g/dL 1.5-4. 5 Not Available [facility] Department [address] [place], [address], 07/28/2023 03:08:25 07/27/19 24 07/27/2023 COMP. METAB OLIC PANEL (14) A/G ratio 1.7 1.2-2. 2 Not Available [facility] Department [address] [place], [address], 07/28/2023 03:08:25 07/27/19 24 07/27/2023 COMP. METAB OLIC PANEL (14) bilirubin, total 0.3 mg/dL 0.0-1. 2 Not Available [facility] Department [address] [place], [address], 07/28/2023 03:08:25 07/27/19 24 07/27/2023 COMP. METAB OLIC PANEL (14) alkaline phosphatase 45 IU/L 44-121 Not Available [facility] Department [address] [place], [address], 07/28/2023 03:08:25 07/27/19 24 07/27/2023 COMP. METAB OLIC PANEL (14) AST (SGOT) 21 IU/L 0-[address] [facility] Department [address] [place], [address], 07/28/2023 03:08:25 07/27/19 24 07/27/2023 COMP. METAB OLIC PANEL (14) ALT (SGPT) 10 IU/L 0-[address] [facility] Department [address] [place], [address], 07/28/2023 03:08:25 07/27/19 24 07/27/2023 CBC, NO DIFFE RENTI AL/PL ATELE T WBC 7.1 x10e3 /uL 3.4-10 .8 Not Available [facility] Department [address] [place], [address], 07/28/2023 03:08:26 07/27/19 24 07/27/2023 CBC, NO DIFFE RENTI AL/PL ATELE T RBC 3.98 x10e6 /uL 3.77-5 .28 Not Available [facility] Department [address] [place], [address], 07/28/2023 03:08:26 07/27/19 24 07/27/2023 CBC, NO DIFFE RENTI AL/PL ATELE T hemoglobin 12.9 g/dL 11.1-1 5.9 Not Available [facility] Department [address] [place], [address], 07/28/2023 03:08:26 07/27/19 24 07/27/2023 CBC, NO DIFFE RENTI AL/PL ATELE T hematocrit 39.2 % 34.0-4 6.6 Not Available [facility] Department [address] [place], [address], 07/28/2023 03:08:26 07/27/19 24 07/27/2023 CBC, NO DIFFE RENTI AL/PL ATELE T MCV 99 fL 79-97 above high normal Not Available [facility] Department [address] [place], [address], 07/28/2023 03:08:26 07/27/19 24 07/27/2023 CBC, NO DIFFE RENTI AL/PL ATELE T MCH 32.4 pg 26.6-3 3.0 Not Available [facility] Department [address] [place], [address], 07/28/2023 03:08:26 07/27/19 24 07/27/2023 CBC, NO DIFFE RENTI AL/PL ATELE T MCHC 32.9 g/dL 31.5-3 5.7 Not Available [facility] Department [address] [place], [address], 07/28/2023 03:08:26 07/27/19 24 07/27/2023 CBC, NO DIFFE RENTI AL/PL ATELE T RDW 12.8 % 11.5-1 4.5 Not Available [facility] Department [address] [place], [address], 07/28/2023 03:08:26 07/27/19 24 07/27/2023 CBC, NO DIFFE RENTI AL/PL ATELE T NRBC 0 % 0-0 Not Available [facility] Department [address] [place], [address], 07/28/2023 03:08:26 07/27/19 24 07/28/2023 RHEUM ATOID ARTHR ITIS PROFI LE rheumatoid factor (rf) <10.0 IU/mL <14.0 Not Available [facility]) [address] [facility], [place], [address], 08/03/2023 10:37:00 07/27/19 24 07/28/2023 RHEUM ATOID ARTHR ITIS PROFI LE anti-ccp Ab, IgG/IgA 6 units 0-19 Negat yolande <20 Weak posit yolande 20 - 39 Moder ate posit yolande 40 - 59 Stron g posit yolande >59 Not Available [facility] ([facility]) [address] [place], [address], 08/03/2023 10:37:00 07/27/19 24 07/28/2023 ANTIN UCLEA R AB MULTI PLEX RFX 9 LASHONDA direct Negati ve negati ve Not Available [facility] ([facility]) [address] [place], [address], 08/03/2023 10:37:01 07/27/19 24 07/28/2023 TSH RFX ON ABNOR MAL TO FREE T4 TSH 3.260 uIU/m L 0.450- 4.500 Not Available [facility] ([facility]) [address] [facility], [place], [address], 08/03/2023 10:37:02 07/27/19 24 07/27/2023 ALLER GENS W/TOT AL IGE AREA 8 class description Commen t Level s of Speci fic IgE Class Descr iptio n of Class ----- ----- ----- ----- ----- -- ----- ----- ----- ----- ----- < 0.10 0 Negat yolande 0.10 - 0.31 0/I Equiv ocal/ Low 0.32 - 0.55 I Low 0.56 - 1.40 II Moder ate 1.41 - 3.90 III High 3.91 - 19.00 IV Very High 19.01 - 100.0 0 V Very High >100. 00 Very High Not Available [facility] ([facility]) [address] [place], [address], 08/03/2023 10:37:02 07/27/19 24 08/03/2023 ALLER GENS W/TOT AL IGE AREA 8 immunoglobul in E, total 7 IU/mL 6-495 Not Available [facility] ([facility]) [address] [place], [address], 08/03/2023 10:37:02 07/27/19 24 08/03/2023 ALLER GENS W/TOT AL IGE AREA 8 W335-BkV D pteronyssinu s <0.10 kU/L class0 Not Available [facility] ([facility]) [address] [place], [address], 08/03/2023 10:37:02 07/27/19 24 08/03/2023 ALLER GENS W/TOT AL IGE AREA 8 C309-QjM D farinae <0.10 Not Available [facility] ([facility]) [address] [place], [address], 08/03/2023 10:37:02 07/27/19 24 08/03/2023 ALLER GENS W/TOT AL IGE AREA 8 W130-KyI CAT dander <0.10 Not Available [facility] ([facility]) [address] [place], [address], 08/03/2023 10:37:02 07/27/19 24 08/03/2023 ALLER GENS W/TOT AL IGE AREA 8 G703-GyB dog dander <0.10 Not Available [facility] ([facility]) [address] [place], [address], 08/03/2023 10:37:02 07/27/19 24 08/03/2023 ALLER GENS W/TOT AL IGE AREA 8 b101-ByR bermuda grass <0.10 Not Available [facility] ([facility]) [address] [place], [address], 08/03/2023 10:37:02 07/27/19 24 08/03/2023 ALLER GENS W/TOT AL IGE AREA 8 n488-UwB fabricio grass <0.10 Not Available [facility] ([facility]) [address] [place], [address], 08/03/2023 10:37:02 07/27/19 24 08/03/2023 ALLER GENS W/TOT AL IGE AREA 8 L512-MmH cockroach, hungarian <0.10 Not Available [facility] ([facility]) [address] [facility], [place], [address], 08/03/2023 10:37:02 07/27/19 24 08/03/2023 ALLER GENS W/TOT AL IGE AREA 8 A072-TjY penicillium chrysogen <0.10 Not Available [facility] ([facility]) [address] [facility], [place], [address], 08/03/2023 10:37:02 07/27/19 24 08/03/2023 ALLER GENS W/TOT AL IGE AREA 8 H930-UaT cladosporium herbarum <0.10 Not Available [facility] ([facility]) [address] [facility], [place], [address], 08/03/2023 10:37:02 07/27/19 24 08/03/2023 ALLER GENS W/TOT AL IGE AREA 8 I529-WiP aspergillus fumigatus <0.10 Not Available [facility] ([facility]) [address] [facility], [place], [address], 08/03/2023 10:37:02 07/27/19 24 08/03/2023 ALLER GENS W/TOT AL IGE AREA 8 M026-SrQ alternaria alternata <0.10 Not Available [facility] ([facility]) [address] [facility], [place], [address], 08/03/2023 10:37:02 07/27/19 24 08/03/2023 ALLER GENS W/TOT AL IGE AREA 8 H189-YhR maple/box elder <0.10 Not Available [facility] ([facility]) [address] [place], [address], 08/03/2023 10:37:02 07/27/19 24 08/03/2023 ALLER GENS W/TOT AL IGE AREA 8 D107-WhT cedar, mountain <0.10 Not Available [facility] ([facility]) [address] [facility], [place], [address], 08/03/2023 10:37:02 07/27/19 24 08/03/2023 ALLER GENS W/TOT AL IGE AREA 8 G900-IwG oak, white <0.10 Not Available [facility] ([facility]) [address], [place], [address], 08/03/2023 10:37:02 07/27/19 24 08/03/2023 ALLER GENS W/TOT AL IGE AREA 8 T740-SdR elm, kittitian <0.10 Not Available [facility] ([facility]) [address] [facility], [place], [address], 08/03/2023 10:37:02 07/27/19 24 08/03/2023 ALLER GENS W/TOT AL IGE AREA 8 F137-SdY maple leaf sycamore <0.10 Not Available [facility] ([facility]) [address] [facility], [place], [address], 08/03/2023 10:37:02 07/27/19 24 08/03/2023 ALLER GENS W/TOT AL IGE AREA 8 A808-EkJ cottonwood <0.10 Not Available [facility] ([facility]) [address] [facility], [place], [address], 08/03/2023 10:37:02 07/27/19 24 08/03/2023 ALLER GENS W/TOT AL IGE AREA 8 E094-RgH edgar, white <0.10 Not Available [facility] ([facility]) [address] [facility], [place], [address], 08/03/2023 10:37:02 07/27/19 24 08/03/2023 ALLER GENS W/TOT AL IGE AREA 8 D189-AyF walnut <0.10 Not Available [facility] ([facility]) [address] [facility], [place], [address], 08/03/2023 10:37:02 07/27/19 24 08/03/2023 ALLER GENS W/TOT AL IGE AREA 8 X993-TeJ pecan, hickory <0.10 Not Available [facility] ([facility]) [address] [facility], [place], [address], 08/03/2023 10:37:02 07/27/19 24 08/03/2023 ALLER GENS W/TOT AL IGE AREA 8 S649-WhN white mulberry <0.10 Not Available [facility] ([facility]) [address] [facility], [place], [address], 08/03/2023 10:37:02 07/27/19 24 08/03/2023 ALLER GENS W/TOT AL IGE AREA 8 W346-ZmK ragweed, short <0.10 Not Available [facility] ([facility]) [address] [facility], [place], [address], 08/03/2023 10:37:02 07/27/19 24 08/03/2023 ALLER GENS W/TOT AL IGE AREA 8 N106-ZlJ thistle, jordanian <0.10 Not Available [facility] ([facility]) [address] [facility], [place], [address], 08/03/2023 10:37:02 07/27/19 24 08/03/2023 ALLER GENS W/TOT AL IGE AREA 8 X276-TtM pigweed, common <0.10 Not Available [facility] ([facility]) [address] [facility], [place], [address], 08/03/2023 10:37:02 07/27/19 24 08/03/2023 ALLER GENS W/TOT AL IGE AREA 8 B802-[id number] rough marshelder <0.10 Not Available [facility] ([facility]) [address] [facility], [place], [address], 08/03/2023 10:37:02 07/27/19 24 08/03/2023 ALLER GENS W/TOT AL IGE AREA 8 F254-IiL mouse urine <0.10 Not Available [facility] ([facility]) [address] [place], [address], 08/03/2023 10:37:02 07/27/19 24 08/03/2023 FOOD ALLER GY PROFI LE H027-LsO egg white <0.10 Not Available [facility] ([facility]) [address] [place], [address], 08/03/2023 10:37:03 07/27/19 24 08/03/2023 FOOD ALLER GY PROFI LE P974-PtF peanut <0.10 Not Available [facility] ([facility]) [address] [place], [address], 08/03/2023 10:37:03 07/27/19 24 08/03/2023 FOOD ALLER GY PROFI LE E316-VxX soybean <0.10 Not Available [facility] ([facility]) [address] [place], [address], 08/03/2023 10:37:03 07/27/19 24 08/03/2023 FOOD ALLER GY PROFI LE P542-DbC milk <0.10 Not Available [facility] ([facility]) [address] [place], [address], 08/03/2023 10:37:03 07/27/19 24 08/03/2023 FOOD ALLER GY PROFI LE X604-SsT clam <0.10 Not Available [facility] ([facility]) [address] [place], [address], 08/03/2023 10:37:03 07/27/19 24 08/03/2023 FOOD ALLER GY PROFI LE N121-NkS shrimp <0.10 Not Available [facility] ([facility]) [address] [place], [address], 08/03/2023 10:37:03 07/27/19 24 08/03/2023 FOOD ALLER GY PROFI LE D057-TdU walnut <0.10 Not Available [facility] ([facility]) [address] [place], [address], 08/03/2023 10:37:03 07/27/19 24 08/03/2023 FOOD ALLER GY PROFI LE U019-UgG codfish <0.10 Not Available [facility] ([facility]) [address] [place], [address], 08/03/2023 10:37:03 07/27/19 24 08/03/2023 FOOD ALLER GY PROFI LE E072-CfE scallop <0.10 Not Available [facility] ([facility]) [address] [place], [address], Ph [id number]|2024-08-19 12:33:00|2024-08-19 12:33:00|XMS_ITS|BKG DAEMON|External Medical Summaries|[id number]|" Clinical Summary Created on: August 19, 2024 Sarah Orozco : 1965 Sex: Female Author Organization [facility] Address [address] [place] [id number] Care Team Providers Care Heavy Equipment Service Manager Name Role Phone Unavailable Primary Care Provider Unavailabl e Social History Tobacco Use Types Packs/Day Years Used Date Smoking Tobacco: Never Assessed Comments Unknown Sex and Gender Information Value Date Recorded Sex Assigned at Not on file Legal Sex Female 8:09 PM CDT Gender Identity Not on file Sexual Orientation Not on file Plan of Treatment Health Maintenance Due Date Last Done Comments Cervical Cancer Screening Pa p Smear (Age 30 to 64) Every 3 Years 1965 Colorectal Cancer Screening Colonoscopy (10 Years) 1965 Annual Physical 12/09/1966 Hepatitis C 12/09/1981 DTaP, Tdap and Td Vaccines ( 1 - Tdap) 12/09/1982 Cervical Cancer Screening Pa p with HPV Testing (Age 30 to 64) Every 5 Years 12/09/1993 Cervical Cancer Screening with HPV 12/09/1993 Mammogram Screening 2003 Pneumococcal Vaccine: 50+ Ye ars (1 of 1 - PCV) 12/09/2013 Zoster Vaccines (1 of 2) 12/09/2013 COVID-19 Vaccine ( - 2023-2 5 season) 2023 RSV Immunization or 60+ Years (1 - 1-dose 75+ series) 12/09/2038 Meningococcal B Vaccine Aged Out No l onger eligible based on patient's age to complete this topic Meningococcal Vaccine Aged Out No perry anabell eligible based on patient's age to complete this topic RSV Immunizations Under 20 Months Aged Out No longer eligible based on patient's age to complete this topic "
--- NOTE | 2024-08-19 12:47 | ED.SKABFB ---
HPI - Skin/Abscess/Foreign Bdy General Chief complaint: Skin/Abscess/Foreign Body Stated complaint: Rash Time Seen by Provider: 08/19/24 13:06 Source: patient and RN notes reviewed Mode of arrival: ambulatory Limitations: no limitations History of Present Illness HPI narrative: 58-year-old female presents concern for poison alpesh. Reports itchy rash to her face, eyes, neck, arms, private area. She reports she pulled poison alpesh on Monday and began having a rash on Monday. Reports she washed her hands with disc soap after pulling the poison alpesh. She denies swollen lips, swollen tongue, trouble breathing MD complaint: rash Related Data Home Medications Medication Instructions Recorded Confirmed Last Taken Type atorvastatin 10 mg tablet mg 08/19/24 Unknown History cyanocobalamin (vitamin B-12) mcg 08/19/24 Unknown History 1,000 mcg/mL injection solution diclofenac sodium 75 mg mg PO 08/19/24 Unknown History tablet,delayed release duloxetine 60 mg capsule,delayed mg PO 08/19/24 Unknown History release escitalopram oxalate 10 mg tablet mg 08/19/24 Unknown History gabapentin 600 mg tablet mg 08/19/24 Unknown History trazodone 50 mg tablet mg 08/19/24 Unknown History valacyclovir 1 gram tablet mg 08/19/24 Unknown History Allergies Allergy/AdvReac Type Severity Reaction Status Date / Time No Known Allergies Allergy Verified 08/19/24 12:51 Review of Systems Review of Systems: CONSTITUTIONAL: Denies malaise, chills, sweats, or fever. EYES: Denies redness, or discharge. ENT: Denies rhinorrhea, congestion, swollen lips, swollen tongue CARDIOVASCULAR: Denies chest pain, palpitations, or edema. RESPIRATORY: Denies cough or dyspnea. GASTROINTESTINAL: Denies abdominal pain, nausea, vomiting SKIN: Reports itchy rash to face, eyes, neck, private area, arms MUSCULOSKELETAL: Denies joint pain or myalgia. NEUROLOGIC: Denies headache. All systems reviewed & are unremarkable except as noted in HPI and below PMFSH Comments At time of signature, agree with nursing past medical, surgical, social and family history. There is no relevant family history pertinent to the presenting complaint Exam Narrative: GENERAL: Well-appearing, well-nourished, and in no acute distress. HEAD: Normocephalic, atraumatic. EYES: PERRLA, conjunctivae and sclerae clear, and EOMI. Rash noted to bilateral upper and lower eyelids with very mild edema ENT: Mucous membranes moist. Oropharynx without edema, erythema or lesions. NECK: Supple. No lymphadenopathy CHEST: Clear to auscultation. No respiratory distress. HEART: Regular rate and rhythm. SKIN: Warm, dry. Patches of raised erythematous rash noted to face, neck, arms NEURO: Alert and oriented x3. PSYCH: Normal mood and affect Course Course Emergency Course: Patient is aware of diagnosis, understands and agrees to treatment plan. Anticipatory guidance given. Patient agrees to follow-up as directed and is aware of reasons to seek care at the emergency department. Portions of this record may have been created with voice recognition software Level of Care: Express Care Visit Vital Signs Vital signs: Reviewed. MDM - Skin/Abscess/Foreign Bdy MDM Narrative Medical decision making narrative: Does not appear at this time to be erythema multiforme, bullous, SJS, TEN; no evidence at this time to suggest RMSF, endocarditis or Lyme disease; patient looks well, nontoxic and is tolerating oral intake; no neurologic signs or symptoms; no headache, photophobia or neck pain; afebrile; appropriate for initial outpatient treatment; discussed the importance of follow-up, patient agrees; question, viral exanthema, contact dermatitis, allergic dermatitis, eczema, urticaria. No soft palate or uvula edema, no tongue, lip edema or other mucosal involvement, no respiratory compromise, no stridor, no wheezing, no wheezing, no history of syncope, no hypotension, no nausea, vomiting, or diarrhea. Instructed patient to go to nearest ER immediately for any worsening symptoms including but not limited to: fever, spreading rash, pain, sore throat, headache, dizziness, chest pain, trouble breathing, or any symptoms concerning to the patient. Critical Care Time Critical Care Time Critical Care Time: No Discharge Plan Discharge Clinical Impression: Contact dermatitis Patient Disposition: Home Condition: Stable Instructions: Contact Dermatitis (ED) Additional Instructions: Prevention is always better than treatment. Learn to identify poison alpesh, oak, and sumac and avoid it. Wear long sleeves, long pants, shoes, and socks. If you touched the plant, try to keep your hands away from your eyes, mouth, and face. Wash the skin thoroughly with soap and cool water as soon as possible. Scrub under the fingernails with a brush to prevent spreading of the resin to other parts of the body by touching or scratching. Remember to wash any clothing with soap and hot water as the resin can persist for many months and cause further dermatitis. You should NOT use antihistamine creams or lotions, anesthetic creams containing benzocaine, or antibiotic creams containing neomycin or bacitracin to the skin. These creams or ointments could make the rash worse. Antihistamines do not help to relieve itching caused by poison alpesh dermatitis. For some people, adding oatmeal to a bath, applying cool wet compresses, and applying calamine lotion may help to relieve itching. Once the blisters begin weeping fluid, astringents containing aluminum acetate (Burow's solution) and [place] may help to relieve the rash. IF symptoms get worse to follow up with your primary care provider or seek ER visit if you developing difficulty breathing, weakness, dizziness. Patient Language: Serbian Prescriptions: New prednisone 20 mg tablet 40 mg PO DAILY 5 Days Qty: 10 0RF No Action gabapentin 600 mg tablet trazodone 50 mg tablet atorvastatin 10 mg tablet valacyclovir 1 gram tablet cyanocobalamin (vitamin B-12) 1,000 mcg/mL solution diclofenac sodium 75 mg tablet,delayed release (DR/EC) PO escitalopram oxalate 10 mg tablet duloxetine 60 mg capsule,delayed release(DR/EC) PO Follow-up/Referrals: Ashanti,Augustina Harp APN [Primary Care Provider] - Time of Disposition: 13:15
[2024-08-19 12:48] VITALS: BP 134/72; PULSE 91; RESP 16; TEMP 36.4; O2SAT 100
[2024-08-19] MEDS: methylPREDNISolone SOD SUCC 125 MG VIAL IM (13:22)
== END 2024-08-19 13:45 | disposition home or self-care (01) ==
PROVIDERS: Emergency Provider Nurse Practitioner; PCP Nurse Practitioner Family
DX: L25.9 Unspecified contact dermatitis, unspecified cause (principal); E78.00 Pure hypercholesterolemia, unspecified
CPT/HCPCS: 96372; 99213; G0463; J2919